=== PATIENT | male | born 1965 | race Caucasian/White ===

== ENCOUNTER 2018-02-07 13:10 | Outpatient (CLI) | payer BC ==
--- NOTE | 2018-02-07 14:41 | RAD ---
CHEST PA AND LATERAL: History: 52-year-old male with dyspnea. Comparison: 06-19-16 FINDINGS: Heart size is within normal limits. The lungs are clear. No pneumonia, edema, pleural effusion or oth er acute process. IMPRESSION: No acute intrathoracic disease. POS: [facility]
== END 2018-02-07 13:11 | disposition home or self-care (01) ==
LOC: RAD 13:10
PROVIDERS: ATTEND Internal Medicine Critical Care Medicine
DX: R06.00 Dyspnea, unspecified (principal)
CPT/HCPCS: 71046

== ENCOUNTER 2018-11-08 13:25 | Outpatient (CLI) | payer BC ==
--- NOTE | 2018-11-08 13:48 | RAD ---
RADIOGRAPH CHEST 2 VIEWS: 11/08/18 HISTORY: 53-year-old male with dyspnea. FINDINGS: There is no air space density, pulmonary edema, pleural effusion, pneumothorax, or cardiomegaly. IMPRESSION: No acute cardiopulmonary findings. jn [] POS: [facility]
== END 2018-11-08 13:26 | disposition home or self-care (01) ==
LOC: RAD 13:25
PROVIDERS: ATTEND Internal Medicine Critical Care Medicine
DX: R06.00 Dyspnea, unspecified (principal)
CPT/HCPCS: 71046

== ENCOUNTER 2018-11-09 11:02 | Outpatient (CLI) | payer BC ==
--- NOTE | 2018-11-09 12:17 | CT ---
CT CHEST WITHOUT CONTRAST CLINICAL INDICATION: Chest pain. Patient states chest pain with every breath. COMPARISON: None FINDINGS: Aorta: Limited evaluation due to lack of intravenous contrast; the thoracic aorta is normal in calibe r. Lungs: Clear without evidence of consolidation or pleural effusion. Mediastinum: Lack of intravenous contrast limits sensitivity for evaluation of the mediastinum. There is mild enlargement of a right paratracheal lymph node measuring 1.4 cm in short axis dimension. No additional enlarged lymph nodes are appreciated. This is overall nonspecific. Thyroid gland: Normal nonenhanced CT appearance where visualized. Osseous structures: Mild degenerative changes are seen within the thoracic spine Chest wall: No abnormality visualized. Upper abdomen: There is an incompletely visualized 5.9 cm hypodense cystic lesion superior pole left kidney, but where image this does demonstrate fluid attenuation likely represents a renal cyst. The remainder of the visualized upper abdomen demonstrates a grossly normal nonenhanced CT appearance. IMPRESSION: 1. No acute findings. 2. The lungs are clear, and there is no pulmonary nodule, mass, or pleural effusion identified. 3. Nonspecific mildly enlarged right paratracheal lymph node. 4. Incompletely imaged left superior pole renal cystic lesion likely attributable to a left renal cys t. However, for complete evaluation, a nonemergent ultrasound would be helpful for further evaluation.
== END 2018-11-09 11:03 | disposition home or self-care (01) ==
LOC: CT 11:02
PROVIDERS: ATTEND Internal Medicine Critical Care Medicine
DX: R07.89 Other chest pain (principal); R59.0 Localized enlarged lymph nodes; N28.9 Disorder of kidney and ureter, unspecified
CPT/HCPCS: 71250; 78306; A9503

== ENCOUNTER 2018-11-16 09:36 | Outpatient (CLI) | payer BC ==
--- NOTE | 2018-11-16 13:32 | NM ---
NUCLEAR MEDICINE BONE SCAN WHOLE BODY: (Skeletal scintigraphy) DATE: 11/16/2018 HISTORY: 53-year-old male with anterior chest wall pain TECHNIQUE: IV injection of technetium 99m-MDP: 30.7 mCi 3 hour delayed whole body skeletal scintigraphy in anterior and posterior views. FINDINGS: There are no foci of asymmetrically increased uptake that are particularly suspicious for bone metast ases. There are multiple tiny foci of increased uptake at the lateral margins of the sternal body, left more numerous than right. Review of chest CT demonstrates osteophytes at the joints between the calcified costal cartilages and the sternum. This would be responsible for the increased uptake. Symmetrically increased uptake at bilateral AC joints. Photopenic defect at right knee surrounded by mildly increased uptake. Bilateral foci of significantly increased uptake at the great toes. Small focus of increased uptake at right posterior mid lumbar spine, presumably facet osteoarthrosis. IMPRESSION: 1. No compelling evidence of skeletal metastasis. 2. 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 3. Status post total right knee replacement arthroplasty. Some increased uptake in bone around the rodriguez rdware. 4. Arthritis at bilateral great toes. 5. Osteoarthrosis of bilateral acromioclavicular joints.
== END 2018-11-16 09:37 | disposition home or self-care (01) ==
LOC: NM 09:36
PROVIDERS: ATTEND Internal Medicine Critical Care Medicine
DX: R07.89 Other chest pain (principal); M19.012 Primary osteoarthritis, left shoulder; M19.011 Primary osteoarthritis, right shoulder; M19.072 Primary osteoarthritis, left ankle and foot; M19.071 Primary osteoarthritis, right ankle and foot; Z96.651 Presence of right artificial knee joint
CPT/HCPCS: 78306; A9503

== ENCOUNTER 2019-12-31 02:15 | Emergency (ER) | payer BC, OTHER, SELFPAY ==
[2019-12-31] MEDS ORDERED: Lorazepam 2 MG/ML VIAL ONE (02:42)
[2019-12-31] MEDS ORDERED: Aspirin 325 MG TAB ONE (02:51)
[2019-12-31 03:12] LABS: ALT (SGPT) 48 U/L (8-55); AST (SGOT) 28 U/L (5-34); Albumin 4.8 g/dL (3.5-5.0); Alkaline Phosphatase 104 U/L (40-110); Anion Gap 16 mmol/L (10-20); BUN (Urea Nitrogen) 17 mg/dL (8.4-25.7); Bilirubin, Total 0.5 mg/dL (0.2-1.2); Calc. Creatinine Clearance 0 mL/min (70-130); Calcium 9.9 mg/dL (7.8-10.44); Carbon Dioxide 25 mmol/L (22-29); Chloride 101 mmol/L (98-107); Estimated GFR-MDRD 64; Globulin 3.3 g/dL (2.4-3.5); Glucose 117 mg/dL (70-105); Lipase 27 U/L (8-78); Magnesium 2.2 mg/dL (1.6-2.6); Potassium 4.1 mmol/L (3.5-5.1); Protein, Total 8.1 g/dL (6.0-8.3); Sodium 138 mmol/L (136-145)
[2019-12-31 03:23] LABS: #Basophils 0.1 thou/uL (0.0-0.2); #Lymphocytes 2.4 thou/uL (1.20-3.40); #Monocytes 0.5 thou/uL (0.11-0.59); #Neutrophils 5.3 thou/uL (1.40-6.50); %Basophils 0.7 % (0.0-1.0); %Eosinophils 0.2 % (0.0-10.0); %Lymphocytes 28.8 % (21.0-51.0); %Monocytes 6.2 % (0.0-10.0); %Neutrophils 64.1 % (42.0-75.0); Hemoglobin 20.8 g/dL (14.0-18.0); Mean Corpuscular Hemoglobin 32.4 pg (27.0-31.0); Mean Corpuscular Volume 97.9 fL (78.0-98.0); Mean Platelet Volume 7.6 fL (7.4-10.4); Platelet Count 253 thou/uL (130-400); RBC Distribution Width 12.8 % (11.5-14.5); Red Blood Cell (RBC) Count 6.42 mill/uL (4.70-6.10); White Blood Cell (WBC) Count 8.2 thou/uL (4.8-10.8)
[2019-12-31] MEDS ORDERED: niCARdipine 20MG In NaCl 20 MG/200 ML BAG ONE (03:36)
[2019-12-31] MEDS ORDERED: Amlodipine 5 MG TAB ONE (04:42)
[2019-12-31] MEDS ORDERED: Haloperidol Lactate 5 MG/ML VIAL ONE (04:42)
[2019-12-31] MEDS ORDERED: diphenhydrAMINE 50 MG/ML VIAL ONE (04:42)
--- NOTE | 2019-12-31 05:41 | PDOC.HHP ---
Hospitalist HPI - History of Present Illness Chest pain History of Present Illness: 54-year-old gentleman with a history of bone cancer and hypertension presented to the emergency department with a complaint of headache and chest pain. Patient also reports shortness of breath. Patient endorsed using cocaine prior to the onset of his symptoms. He stated his blood pressure was very high at home. His systolic blood pressure in the ED was 179 and diastolic of 119. His initial troponin is negative. Chest x-ray is unremarkable. Other abnormal labs include hemoglobin of 20.8 suggesting polycythemia. BMP is unremarkable. Chest x-ray shows no acute cardiopulmonary process. Patient was started on ni cardipine drip given his high blood pressure and symptoms. Systolic blood pressure 122 on the nicardipine drip when I saw him in the ED. patient is hospitalized for further management of cocaine induced chest pain, headache and malignant hypertension. Hospitalist ROS - Review of Systems Other: Except as documented, all other systems reviewed and negative. Hospitalist History - Past Medical History Cardiac: reports: HTN Psych: reports: Anxiety, Depression Other Medical History: History of bone cancer - Past Surgical History Other Surgical History: Bilateral knee surgery Right foot bone surgery - Family History Other Family History: Reviewed and noncontributory - Social History Smoking Status: Current every day smoker Drugs: reports: none (Abuses cocaine) - Exam General Appearance: awake alert General - other findings: Moderate distress due to headache Eye: PERRL, anicteric sclera ENT: normocephalic atraumatic, no oropharyngeal lesions, moist mucosa Neck: supple, symmetric, no JVD, no thyromegaly Heart: RRR, no murmur, no gallops Respiratory: CTAB, no wheezes, no rales, no ronchi Gastrointestinal: soft, non-tender, non-distended, normal bowel sounds Extremities: no cyanosis, no edema Skin: normal turgor, no rashes Neurological: cranial nerve grossly intact, no weakness, no focal deficits Musculoskeletal: normal tone, normal strength Psychiatric: A&O x 3 Psychiatric - other findings: Dysphoric Hospitalist Results - Labs Result Diagrams: 12/31/19 03:06 12/31/19 02:40 Lab results: WBC 8.2 thou/uL (4.8-10.8) 12/31/19 03:06 Hgb 20.8 g/dL (14.0-18.0) H* 12/31/19 03:06 Hct 62.9 % (42.0-52.0) H* 12/31/19 03:06 MCV 97.9 fL (78.0-98.0) 12/31/19 03:06 Plt Count 253 thou/uL (130-400) 12/31/19 03:06 Neutrophils % 64.1 % (42.0-75.0) 12/31/19 03:06 Sodium 138 mmol/L (136-145) 12/31/19 02:40 Potassium 4.1 mmol/L (3.5-5.1) 12/31/19 02:40 Chloride 101 mmol/L (98-107) 12/31/19 02:40 Carbon Dioxide 25 mmol/L (22-29) 12/31/19 02:40 BUN 17 mg/dL (8.4-25.7) 12/31/19 02:40 Creatinine 1.18 mg/dL (0.7-1.3) 12/31/19 02:40 Glucose 117 mg/dL (70-105) H 12/31/19 02:40 Calcium 9.9 mg/dL (7.8-10.44) 12/31/19 02:40 Total Bilirubin 0.5 mg/dL (0.2-1.2) 12/31/19 02:40 AST 28 U/L (5-34) 12/31/19 02:40 ALT 48 U/L (8-55) 12/31/19 02:40 Alkaline Phosphatase 104 U/L (40-110) 12/31/19 02:40 Troponin I Less than 0.010 ng/mL (< 0.028) 12/31/19 02:40 B-Natriuretic Peptide 15.8 pg/mL (0-100) 12/31/19 02:40 Serum Total Protein 8.1 g/dL (6.0-8.3) 12/31/19 02:40 Albumin 4.8 g/dL (3.5-5.0) 12/31/19 02:40 Lipase 27 U/L (8-78) 12/31/19 02:40 Hospitalist H&P A/P - Problem (1) Chest pain Code(s): R07.9 - CHEST PAIN, UNSPECIFIED Status: Acute (2) Malignant hypertension Code(s): I10 - ESSENTIAL (PRIMARY) HYPERTENSION Status: Acute (3) Cocaine abuse Code(s): F14.10 - COCAINE ABUSE, UNCOMPLICATED Status: Acute (4) Headache Code(s): R51.9 - Status: Acute (5) Polycythemia Code(s): D75.1 - SECONDARY POLYCYTHEMIA Status: Acute - Plan Plan: Admit to [facility]. Give a dose of amlodipine 10 mg and wean off nicardipine drip as possible. Trend troponin Obtain echocardiogram. IV hydration. Monitor for symptom improvement. Patient counseled to avoid cocaine use. Polycythemia may be secondary to hemoconcentration from dehydration. Monitor CBC
[2019-12-31] MEDS ORDERED: Sodium Chloride 0.9% 1,000 ML IV SCH (06:00)
[2019-12-31 07:05] LABS: Troponin I 0.012 ng/mL (< 0.028)
[2019-12-31] MEDS ORDERED: Enoxaparin Sodium 40 MG/0.4 ML SYRINGE SC SCH (09:00)
[2019-12-31] MEDS ORDERED: Aspirin 81 mg Enteric Coated Tablet PO SCH (09:00)
--- NOTE | 2019-12-31 11:38 | RAD ---
PORTABLE CHEST: HISTORY: Chest pain. COMPARISON: 06/12/2015 study and also a review of an 11/08/2018 exam. FINDINGS: Heart size is within normal limits. The aorta is tortuous. Interstitial markings are increased, sli ghtly more prominent than they have been on the prior exam. No definite confluent infiltrative proce ss. IMPRESSION: Slightly increased interstitial lung change. Some of this appears to be chronic in nature but is mor e prominent than on the prior exams. No overt pulmonary vascular engorgement is seen. The possibili ty of edema is not totally excluded. I think a multifocal infiltrative process would be less likely unless the patient has symptoms. Some of the difference between the exams may just be related to socorro hnical factors. POS: [facility]
[2019-12-31 13:28] LABS: SARS-CoV-2 MS2 Positive; SARS-CoV-2 N Gene Negative; SARS-CoV-2 S Gene Negative; SARS-CoV-2 by NAA Not Detected (NotDetected); SARS-CoV-2 orf1ab Negative
--- NOTE | 2020-01-01 03:18 | DIS ---
DATE OF ADMISSION: 12/31/2019 DATE OF DISCHARGE: 12/31/2019 PRIMARY CARE PROVIDER: Chris Sharma, nurse practitioner. The patient left against medical advice on December 31, 2019. HOSPITAL COURSE: Mr. Hurd was admitted to the hospital on December 31, 2019, for chest pain, malignant hypertension, and cocaine abuse. Shortly after admission, the patient did not wish to stay in the hospital and left against medical advice. Job ID: [id number]
== END 2019-12-31 09:20 | disposition left against medical advice (07) ==
LOC: ERS 02:15
DX: I16.0 Hypertensive urgency (principal); R07.9 Chest pain, unspecified; F41.9 Anxiety disorder, unspecified; F32.9 Major depressive disorder, single episode, unspecified; F17.210 Nicotine dependence, cigarettes, uncomplicated; Z79.899 Other long term (current) drug therapy
CPT/HCPCS: 36415; 71045; 80053; 83690; 83735; 83880; 84443; 84484; 85025; 87635; 93005; J1200; J1630; J2060; U0003

== ENCOUNTER 2020-01-18 16:56 | Emergency (ER) | payer BC, SELFPAY ==
[~2020-01-18 16:56] MED LIST: Iopamidol-370 76% 500 ML 1 ML ONE
[2020-01-18] MEDS ORDERED: HYDROcodone/Acetaminophen 10/325 mg Tablet ONE (18:25)
--- NOTE | 2020-01-18 18:36 | RAD ---
XR Hip Lt 2-3 View INDICATION: Slipped with left inguinal pain and injury COMPARISON: None FINDINGS: Bones: No acute osseous abnormality. Bone mineralization appears within normal limits. Hip joint: Radiographically normal. SI joints and symphysis pubis: Radiographically normal. Intrapelvic contents: Visualized bowel gas pattern is within normal limits. Surrounding soft tissues: Radiographically normal. IMPRESSION: 1. No acute osseous abnormality.
--- NOTE | 2020-01-18 20:31 | CT ---
CT OF THE ABDOMEN AND PELVIS WITH CONTRAST: 01/18/20 COMPARISON: None. HISTORY: Slip and fall with left groin pain that causes left leg throbbing. TECHNIQUE: Multiple contiguous axial images were obtained in a CT of the abdomen and pelvis with contrast. Sagit chinyere and coronal reformats were performed. FINDINGS: There is a 6.6 cm cyst in the left kidney. The liver, gallbladder, right kidney, adrenal glands, sple en, and pancreas are unremarkable. No free air, free fluid, or stranding changes are seen in the abdo men or pelvis. There is slight scarring surrounding both kidneys. The large and small bowel are unremarkable. No abdominal or pelvic lymphadenopathy are seen. The muscles surrounding the pelvis are symmetric without hematoma or focal fluid collection. Degenera tive changes are seen in the spine. The sacroiliac joints are fused. There is no evidence of pelvic o r hip fracture. The visualized inferior thorax is unremarkable. IMPRESSION: 1. No evidence of acute intra-abdominal/pelvic abnormality. 2. Left renal cyst. POS: [facility]
== END 2020-01-18 21:10 | disposition home or self-care (01) ==
LOC: ERS 16:56
DX: R10.30 Lower abdominal pain, unspecified (principal); M25.552 Pain in left hip; I10 Essential (primary) hypertension; F32.9 Major depressive disorder, single episode, unspecified; F41.9 Anxiety disorder, unspecified; F17.210 Nicotine dependence, cigarettes, uncomplicated; Z85.830 Personal history of malignant neoplasm of bone; Z79.899 Other long term (current) drug therapy; W00.0XXA Fall on same level due to ice and snow, initial encounter
CPT/HCPCS: 74177; Q9967

== ENCOUNTER 2020-01-22 05:47 | Emergency (ER) | payer SELFPAY ==
[2020-01-22] MEDS ORDERED: Morphine 4 MG/ML VIAL ONE (06:02)
[2020-01-22] MEDS ORDERED: Ondansetron PF 4 MG/2 ML Vial ONE (06:02)
[2020-01-22] MEDS ORDERED: Fluorescein Opthalmic Strip ONE (06:05)
[2020-01-22] MEDS ORDERED: Proparacaine 0.5% Opth 15 ML BOT ONE (06:05)
[2020-01-22 06:08] LABS: Hemoglobin 18.5 g/dL (14.0-18.0); Mean Corpuscular HGB CONC 33.4 g/dL (32.0-36.0); Mean Corpuscular Hemoglobin 32.3 pg (27.0-31.0); Mean Corpuscular Volume 96.9 fL (78.0-98.0); Mean Platelet Volume 7.6 fL (7.4-10.4); Platelet Count 187 thou/uL (130-400); RBC Distribution Width 13.2 % (11.5-14.5); Red Blood Cell (RBC) Count 5.71 mill/uL (4.70-6.10); White Blood Cell (WBC) Count 8.9 thou/uL (4.8-10.8)
[2020-01-22 06:10] LABS: Analyzer IN Cardio ER; Base Excess (BEa) 3.1 mEq/L (-2.0 to +3.0); CO2 Tension 43.5 mmHg (35.0-45.0); Calcium, Ionized (arterial) 1.18 mmol/L (1.12-1.30); Carboxyhemoglobin (COHb) 4.9 gm% (0.0-3.0); Hemoglobin (Hb) 18.7 g/dL (14.0-18.0); O2 Tension (PaO2), arterial 170.8 mmHg (80.0-100.0); Potassium - ABG Lab 3.89 mmol/L (3.70-5.30); pH, Arterial 7.43 (7.35-7.45)
[2020-01-22 06:11] LABS: ALV-art Gradient 487.825 mmHg (0-20); Puncture Site LRA
[2020-01-22 06:35] LABS: Band 1 % (5-11); Lymphocytes 60 % (21-51); MDiff Complete? YES; Monocytes 6 % (0-10); Neutrophil 31 % (42-75); Reactive Lymphocytes 2 % (0-10)
[2020-01-22 07:04] LABS: ALT (SGPT) 51 U/L (8-55); AST (SGOT) 27 U/L (5-34); Albumin 4.2 g/dL (3.5-5.0); Alkaline Phosphatase 90 U/L (40-110); Anion Gap 17 mmol/L (10-20); BUN (Urea Nitrogen) 19 mg/dL (8.4-25.7); Bilirubin, Total 0.6 mg/dL (0.2-1.2); Calc. Creatinine Clearance 0 mL/min (70-130); Calcium 8.7 mg/dL (7.8-10.44); Carbon Dioxide 23 mmol/L (22-29); Chloride 104 mmol/L (98-107); Estimated GFR-MDRD 64; Globulin 2.8 g/dL (2.4-3.5); Glucose 98 mg/dL (70-105); Sodium 140 mmol/L (136-145)
--- NOTE | 2020-01-22 07:45 | RAD ---
Exam: Chest one view HISTORY:Dyspnea Comparison: 12/31/2019 FINDINGS: Cardiac silhouette: Normal Aorta: Unremarkable Pulmonary vessels: Normal Costophrenic angles: Clear LUNGS: Improved aeration lung parenchyma. Residual interstitial opacities do remain. Residual interst itial infiltrate is suspected. Pneumothorax: None Osseous abnormalities: None IMPRESSION: Improved aeration of the lung parenchyma. Residual interstitial infiltrate is suspected. Continued surveillance is recommended.
== END 2020-01-22 07:55 | disposition left against medical advice (07) ==
LOC: ERS 05:47
DX: T59.811A Toxic effect of smoke, accidental (unintentional), initial encounter (principal); F17.210 Nicotine dependence, cigarettes, uncomplicated; I10 Essential (primary) hypertension; Z85.830 Personal history of malignant neoplasm of bone
CPT/HCPCS: 71045; 80053; 82805; 85025; 94640; 96374; 96375; J2270; J2405; J7620

== ENCOUNTER 2020-05-31 09:31 | Outpatient (CLI) | payer BC | END 2020-05-31 09:32 | disposition home or self-care (01) | LOC: BICRAD 09:31 | PROVIDERS: ATTEND Internal Medicine Critical Care Medicine | DX: R06.00 Dyspnea, unspecified (principal) | CPT/HCPCS: 71046 ==

== ENCOUNTER 2020-06-05 08:26 | Outpatient (CLI) | payer BC ==
[2020-06-05] MEDS ORDERED: Iopamidol 370 76% 100 ML VIAL ONE (12:03)
== END 2020-06-05 08:27 | disposition home or self-care (01) ==
LOC: CT 08:26
PROVIDERS: ATTEND Internal Medicine Critical Care Medicine
DX: R06.09 Other forms of dyspnea (principal)
CPT/HCPCS: 71275; Q9967

== ENCOUNTER 2020-08-08 07:18 | Outpatient (CLI) | payer BC | END 2020-08-08 07:19 | disposition home or self-care (01) | LOC: CTENTCT 07:18 | PROVIDERS: ATTEND Student in an Organized Health Care Education/Training Program | DX: J32.9 Chronic sinusitis, unspecified (principal) | CPT/HCPCS: 70486 ==

== ENCOUNTER 2020-08-12 10:30 | Outpatient (CLI) | payer BC ==
[2020-08-12 12:41] LABS: Hemoglobin 17.9 g/dL (13.5-17.5); Mean Corpuscular HGB CONC 32.6 g/dL (32.0-36.0); Mean Corpuscular Hemoglobin 30.8 pg (27.0-33.0); Mean Corpuscular Volume 94.3 fl (81.2-95.1); Mean Platelet Volume 9.7 fl (7.4-10.4); Platelet Count 218 10x3/uL (150-450); RBC Distribution Width 13.3 % (11.5-14.5); Red Blood Cell (RBC) Count 5.82 10x6/uL (4.32-5.72)
[2020-08-12 13:20] LABS: MDiff Complete? YES
[2020-08-12 13:52] LABS: Anion Gap 16 mmol/L (10-20); BUN (Urea Nitrogen) 15 mg/dL (8.4-25.7); Calc. Creatinine Clearance 0 mL/min (70-130); Calcium 8.9 mg/dL (7.8-10.44); Carbon Dioxide 23 mmol/L (22-29); Chloride 105 mmol/L (98-107); Glucose 83 mg/dL (70-105); Potassium 4.9 mmol/L (3.5-5.1); Sodium 139 mmol/L (136-145)
[2020-08-12 14:25] LABS: Lymphocytes 51 % (21-51); Monocytes 7 % (0-10); Neutrophil 42 % (42-75)
== END 2020-08-12 10:31 | disposition home or self-care (01) ==
LOC: LABBT 10:30
PROVIDERS: ATTEND Surgery
DX: Z01.818 Encounter for other preprocedural examination (principal); K21.00 Gastro-esophageal reflux disease with esophagitis, without bleeding
CPT/HCPCS: 80048; 85025; 93005; 93010

== ENCOUNTER → 2020-08-13 | Day surgery (SDC) | payer BC | LOC: ENDO/OP 12:51 | PROVIDERS: ATTEND Surgery | DX: K21.00 Gastro-esophageal reflux disease with esophagitis, without bleeding (principal); F17.200 Nicotine dependence, unspecified, uncomplicated | CPT/HCPCS: 91010 ==

== ENCOUNTER 2020-08-15 08:16 | Day surgery (SDC) | payer BC ==
[2020-08-14 15:58] VITALS: BMI 30.5
[2020-08-15] MEDS ORDERED: PHENYLEPHRINE-NS 100 MCG/ML 10 ML SYRINGE ONE (09:07)
[2020-08-15] MEDS ORDERED: Ondansetron PF 4 MG/2 ML Vial ONE (09:07)
[2020-08-15] MEDS ORDERED: Glycopyrrolate 0.2 MG/ML 5 ML SYRINGE ONE (09:07)
[2020-08-15] MEDS ORDERED: Ketorolac Tromethamine 30 MG/ML VIAL ONE (09:07)
[2020-08-15] MEDS ORDERED: PROPOFOL 200 MG/20 ML VIAL ONE (09:07)
[2020-08-15] MEDS ORDERED: ePHEDrine Sulfate 50 MG/10 ML VIAL ONE (09:07)
[2020-08-15] MEDS ORDERED: Lidocaine 1% PF 5 ML VIAL ONE (09:07)
[2020-08-15] MEDS ORDERED: Vecuronium 10 MG VIAL ONE (09:07)
[2020-08-15] MEDS ORDERED: Dexamethasone 20 MG/5 ML VIAL ONE (09:07)
[2020-08-15] MEDS ORDERED: Rocuronium Bromide 10 MG/ML (10ML VIAL) ONE (09:07)
[2020-08-15] MEDS ORDERED: Morphine 4 MG/ML VIAL ONE (09:24)
[2020-08-15] MEDS ORDERED: HYDROmorphone 0.5 MG/0.5 ML SYRINGE ONE ×2 (10:13→10:52)
[2020-08-15] MEDS ORDERED: Lidocaine 1% w/Epinephrine 1:100K 20 ML VIAL ONE (11:09)
[2020-08-15] MEDS ORDERED: Bupivacaine 0.25% HCL 30 ML VIAL ONE (11:09)
[2020-08-15] MEDS ORDERED: Dexmedetomidine 200 MCG/2 ML VIAL ONE (11:11)
[2020-08-15] MEDS ORDERED: Lidocaine 2% Jelly 5 ML TUBE ONE (11:15)
[2020-08-15] MEDS ORDERED: Fentanyl 100 MCG/2 ML VIAL ONE ×2 (11:15→13:47)
== END 2020-08-15 16:12 | disposition home or self-care (01) ==
LOC: SDC 08:16 → EEVIPCON 08:16 → SDC 16:12
PROVIDERS: ATTEND Surgery
PROC: 0DV44ZZ Restriction of Esophagogastric Junction, Percutaneous Endoscopic Approach (ICD-10-PCS; principal; 2020-08-15)
DX: K44.9 Diaphragmatic hernia without obstruction or gangrene (principal); K21.00 Gastro-esophageal reflux disease with esophagitis, without bleeding; F17.200 Nicotine dependence, unspecified, uncomplicated
CPT/HCPCS: J0690; J1100; J1170; J1885; J2270; J2405; J2704; J3010; S0020